=== PATIENT | male | born 1955 | race Caucasian/White ===

== ENCOUNTER 2018-02-06 14:22 | Emergency (ER) | payer OTHER ==
[~2018-02-06] VITALS: Ht 170.2 cm; Wt 71.4 kg
[2018-02-06] MEDS ORDERED: LIDOCAINE HCL/PF 1% 30 ML VIAL INJ ONE (15:45)
[2018-02-06] MEDS ORDERED: IBUPROFEN 600 MG TABLET PO ONE (17:00)
[2018-02-06] MEDS ORDERED: CEPHALEXIN MONOHYDRATE 500 MG CAPSULE PO ONE (17:00)
[2018-02-06] MEDS ORDERED: HYDROCODONE/ACETAMINOPHEN 5-325 MG TABLET PO ONE (17:00)
[2018-02-06 17:18] VITALS: BP 130/95
== END 2018-02-06 17:43 | disposition home or self-care (01) ==
LOC: EMS 14:26
DX: S61.211A Laceration without foreign body of left index finger without damage to nail, initial encounter (principal); F17.210 Nicotine dependence, cigarettes, uncomplicated; W45.8XXA Other foreign body or object entering through skin, initial encounter; Y93.89 Activity, other specified; Y92.89 Other specified places as the place of occurrence of the external cause; Y99.8 Other external cause status
CPT/HCPCS: 12001; 73130; 99284; J3490